=== PATIENT | female | born 1990 | race Two or more races ===

== ENCOUNTER 2022-07-23 08:51 | Inpatient (IN) | payer OTHER ==
[~2022-07-23] VITALS: Ht 170.2 cm; Wt 75.3 kg
[2022-07-23] MEDS ORDERED: PRENATAL CAPLE1 EAC1 PO (10:06)
== END 2022-07-25 15:34 | disposition home or self-care (01) | DRG 807 ==
LOC: OB/GYN 08:51 → LDR 08:51 → OB/GYN 16:59
PROVIDERS: ADMIT Obstetrics & Gynecology; ATTEND Obstetrics & Gynecology
PROC: 0UQG7ZZ Repair Vagina, Via Natural or Artificial Opening (ICD-10-PCS; 2022-07-23)
PROC: 4A1HXCZ Monitoring of Products of Conception, Cardiac Rate, External Approach (ICD-10-PCS; 2022-07-23)
PROC: 10E0XZZ Delivery of Products of Conception, External Approach (ICD-10-PCS; principal; 2022-07-23 18:00)
DX: O71.4 Obstetric high vaginal laceration alone (principal); Z37.0 Single live birth; Z3A.39 39 weeks gestation of pregnancy; Z20.822 Contact with and (suspected) exposure to COVID-19